=== PATIENT | male | born 1955 | race Caucasian/White ===

== ENCOUNTER 2020-07-28 06:45 | Day surgery (SDC) | payer MEDICARE, OTHER ==
[~2020-07-28] VITALS: Ht 188 cm; Wt 104.5 kg
[~2020-07-28 06:45] MED LIST: ASPIRIN81 MG PO; BRIMONIDINE 0.110 ML OP; LATANOPROST 0.7.5 ML OP; LISINOPRIL-HCT1 EACH PO; NABUMETONE500 MG PO
[2020-07-28] MEDS ORDERED: DICLOFENAC SODI75 MG PO (08:43)
[2020-07-28] MEDS ORDERED: ASPIRIN325 MG PO (08:43)
[2020-07-28] MEDS ORDERED: HYDROCODON-ACE1 EA10 PO (08:43)
--- NOTE | 2020-07-28 08:43 | NUR ---
PT ALERT, ORIENTED AND MADE IT VERY OBVIOUS HE IS READY FOR SOME RELIEF FROM THE PAIN IN HIS KNEE. PT MENTIONED THAT IT HAS BEEN 6-7 MONTHS THAT HE HAS SUFFERED WITH THE PAIN. ALL QUESTIONS ASKED ANSWERED. GAVE BLESSING AND WILL FOLLOW
--- NOTE | 2020-07-28 08:53 | NUR ---
07/28/20 0853 Enedelia You 0840 PT TO PACU SLEEPING NEEDS JAW THRUST TO MAINTAIN AIRWAY.
--- NOTE | 2020-07-28 09:18 | NUR ---
ICED WATER AND PUDDING GIVEN. CALL LIGHT IS WITHIN REACH. ATTEMPT MADE TO CONTACT PATIENT'S SPOUSE AND I AM UNABLE TO LOCATE HER.
--- NOTE | 2020-07-28 10:38 | NUR ---
LE 1000: PATIENT IS UP TO THE BATHROOM WITH MY STANDBY ASSIST. HE REPORTS "I DON'T HAVE ANY PAIN! I CAN'T BELIEVE HOW GOOD THIS FEELS!" PATIENT VOIDS AND IS BACK IN HIS ROOM. DISCHARGE INSTRUCTIONS ARE GIVEN TO HE AND HIS SPOUSE AND BOTH VERBALIZE UNDERSTANDING. ICE PACK IS SENT WITH PATIENT. HE DRESSES HIMSELF IN THE PRESENCE OF HIS SPOUSE AND THEN TRANSFERS SELF TO WHEELCHAIR AND THEN TO PERSONAL VEHICLE AND HE TOLERATES THAT WELL.
--- NOTE | 2020-07-28 14:31 | EKG ---
[facility] [address] [address] [place] [address] Signed Normal sinus rhythm Right atrial enlargement Pulmonary disease pattern Right bundle branch block Inferior infarct (cited on or before 25-JUL-2020) T wave abnormality, consider lateral ischemia Abnormal ECG When compared with ECG of 25-JUL-2020 14:49, Non-specific change in ST segment in Inferior leads ST now depressed in Lateral leads Nonspecific T wave abnormality now evident in Inferior leads T wave inversion more evident in Anterolateral leads Confirmed by JAVI UQRESHI DO ([id number]) on 07/28/2020 2:31:12 PM Electronically Signed By: JAVI QURESHI DO 07/28/20 1431 PATIENT NAME: CARSON LOPEZ Electrocardiogram DATE OF : 57 PHYSICIAN: JAVI QURESHI DO REPORT #: [id number] REPORT IS CONFIDENTIAL AND NOT TO BE RELEASED WITHOUT AUTHORIZATION
--- NOTE | 2020-07-31 08:49 | OR ---
[facility] [address] [place], [place] [address] Signed DATE OF OPERATION: 07/28/2020 SURGEON: Rosario You MD PREOPERATIVE DIAGNOSIS: Medial meniscus tear, left knee. POSTOPERATIVE DIAGNOSIS: Medial meniscus tear, left knee. PROCEDURE PERFORMED: Left knee arthroscopy with partial medial meniscectomy. DELIVERY AND INSTALLATION SUBCONTRACTOR: None. ANESTHESIA: General. BLOOD LOSS: Minimal. BRIEF HISTORY: Stewart is a 65-year-old gentleman with pain and locking in his knee. MRI was consistent with a fairly sizable medial meniscus tear. Risks and benefits of operative treatment were discussed with him and he elected to proceed. DESCRIPTION OF PROCEDURE: Once consent was obtained, he was taken to the operating room. After adequate anesthesia, he was placed on the operating table. All downside pressure points were well padded. Right leg was flexed, abducted, and externally rotated on a well-padded leg soares. The left leg was placed in well-padded leg soares and the portal sites were pre-injected using 0.25% Marcaine with epinephrine under an alcohol prep. The leg was then prepped and draped in a standard sterile fashion. Standard inferolateral and superolateral portals were made and the scope was introduced in the knee. ARTHROSCOPIC FINDINGS: Knee showed moderate synovitis throughout. 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 Medial and lateral gutters were clear with small osteophytes. ACL and PCL were intact. Lateral compartment showed diffuse grade 2 chondromalacia of Electronically Signed By: ROSARIO YOU MD 07/31/20 0849 PATIENT NAME: CARSON LOPEZ OPERATIVE REPORT DATE OF : 57 REPORT #: [id number] PHYSICIAN: ROSARIO YOU MD PCP: BALDEV LEY MD REPORT IS CONFIDENTIAL AND NOT TO BE RELEASED WITHOUT AUTHORIZATION [facility] [address] [place], [place] [address] Signed the femur, grade 1 to the tibia. The medial compartment showed a complex tear with a flap folded underneath in the mid medial body. There was grade 2 chondromalacia on both sides of the joint. Standard inferomedial portal was established after localization using a spinal needle. The straight and curved biters were used to trim the meniscus tear back to a stable rim. The debris was evacuated and the meniscal remnants were smoothed and tethered using the shaver. The scope was then withdrawn. Portals were closed with 3-0 nylon and the knee was injected with 60 mg of Toradol at the end of the case. The wounds were dressed with Adaptic, ABD, and Ken wrap. He tolerated the procedure well. All sponge, needle, and instrument counts were correct. Rosario You MD BA/SELENAL /[id number] Copies: ~ Electronically Signed By: ROSARIO YOU MD 07/31/20 0849 PATIENT NAME: CARSON LOPEZ OPERATIVE REPORT DATE OF : 57 REPORT #: [id number] PHYSICIAN: ROSARIO YOU MD PCP: BALDEV LEY MD REPORT IS CONFIDENTIAL AND NOT TO BE RELEASED WITHOUT AUTHORIZATION
== END 2020-07-28 10:10 | disposition home or self-care (01) ==
LOC: DS 06:45
PROVIDERS: ATTEND Specialist
PROC: 0SBD4ZZ Excision of Left Knee Joint, Percutaneous Endoscopic Approach (ICD-10-PCS; principal; 2020-07-28 08:30)
DX: S83.232A Complex tear of medial meniscus, current injury, left knee, initial encounter (principal); H40.9 Unspecified glaucoma; M19.90 Unspecified osteoarthritis, unspecified site; I10 Essential (primary) hypertension; Z87.891 Personal history of nicotine dependence; Z79.82 Long term (current) use of aspirin; Z86.79 Personal history of other diseases of the circulatory system; X50.1XXA Overexertion from prolonged static or awkward postures, initial encounter; Y92.000 Kitchen of unspecified non-institutional (private) residence as the place of occurrence of the external cause
CPT/HCPCS: 01400; 93005; 93010; J0690; J1100; J1885; J2001; J2405; J2704; J3010; J7121